=== PATIENT | male | born 1985 | race Caucasian/White ===

== ENCOUNTER 2016-08-19 13:08 | Emergency (ER) | payer SELFPAY ==
[~2016-08-19] VITALS: Ht 177.8 cm; Wt 65.0 kg
[~2016-08-19 13:08] MED LIST: VISTARIL 50MG C50 MG PO
[2016-08-19] MEDS ORDERED: ANUCORT-HC25 MG RE (14:22)
[2016-08-19 14:37] VITALS: BP 110/69
== END 2016-08-19 14:37 | disposition home or self-care (01) | DRG 395 ==
LOC: ED 13:08
DX: K60.2 Anal fissure, unspecified (principal); L29.0 Pruritus ani

== ENCOUNTER 2016-10-27 14:34 | Emergency (ER) | payer SELFPAY ==
[~2016-10-27] VITALS: Ht 177.8 cm; Wt 65.0 kg
[~2016-10-27 14:34] MED LIST changes: +ANUCORT-HC25 MG RE
[2016-10-27 16:12] VITALS: BP 131/74
== END 2016-10-27 16:12 | disposition home or self-care (01) | DRG 605 ==
LOC: ED 14:34
DX: S61.031A Puncture wound without foreign body of right thumb without damage to nail, initial encounter (principal); W45.8XXA Other foreign body or object entering through skin, initial encounter; W22.8XXA Striking against or struck by other objects, initial encounter; Y93.89 Activity, other specified; Y92.007 Garden or yard of unspecified non-institutional (private) residence as the place of occurrence of the external cause

== ENCOUNTER 2019-02-07 16:37 | Emergency (ER) | payer OTHER ==
[~2019-02-07] VITALS: Ht 177.8 cm; Wt 61.4 kg
[2019-02-07 19:10] VITALS: BP 112/79
== END 2019-02-07 19:10 | disposition home or self-care (01) | DRG 552 ==
LOC: ED 16:37
DX: S16.1XXA Strain of muscle, fascia and tendon at neck level, initial encounter (principal); M54.2 Cervicalgia; V43.52XA Car driver injured in collision with other type car in traffic accident, initial encounter; Y92.414 Local residential or business street as the place of occurrence of the external cause

== ENCOUNTER 2020-08-09 23:35 | Emergency (ER) | payer BC ==
[~2020-08-09] VITALS: Ht 180.3 cm; Wt 70.5 kg
[2020-08-10 00:21] LABS: ALBUMIN 4.6 g/dL (3.2-5.0); ALKALINE PHOSPHATASE 56 u/l (38-126); AMYLASE 56 u/l (30-110); ANION GAP 11 (6-22 (CALC)); BILIRUBIN, TOTAL 0.8 mg/dL (0.0-1.4); BUN 11 mg/dL (9-20); BUN/CREATININE RATIO 10 (12-20 (CALC)); CARBON DIOXIDE 31 mmol/l (22-30); CHLORIDE 98 mmol/l (95-108); CREATININE 1.1 mg/dL (0.7-1.3); GFR > 60 ML/MIN (>=60 (CALC)); GFR FOR AFR.AMER. > 60 ML/MIN (>=60 (CALC)); LIPASE 105 u/l (23-300); POTASSIUM 3.7 mmol/l (3.5-5.1); SGOT/AST 29 u/l (17-59); SODIUM 136 mmol/l (137-146); TOTAL PROTEIN 7.4 g/dL (6.3-8.2)
[2020-08-10 00:29] LABS: HEMATOCRIT 44.8 % (39.0-50.0); HEMOGLOBIN 15.2 g/dl (14.0-18.0); IMMATURE GRANULOCYTES 0.1 % (0.0-5.0); MEAN CELL VOLUME 89.6 fL CALC (80.0-100.0); MEAN CORPUSCULAR HGB 30.4 pG CALC (26.0-32.0); MEAN CORPUSCULAR HGB CONC 33.9 g/dL CAL (32.0-36.0); NEUT# 5.45 thou/uL (1.82-7.42); RED CELL DISTRI WIDTH 11.8 % (11.5-15.5)
[2020-08-10 00:33] LABS: MYOGLOBIN 80 ng/mL (0 - 121)
[2020-08-10 00:36] LABS: ACT PARTIAL THROMBO TIME 24.7 SECONDS (20.0-32.5); INTERNATIONAL NORMALIZED RATIO 1.1 RATIO (0.7-1.3); PROTHROMBIN TIME 10.9 SECONDS (9.0-12.5)
[2020-08-10 00:51] LABS: D-DIMER 0.17 mg/L (0.19-0.60)
[2020-08-10 01:54] VITALS: BP 117/78
== END 2020-08-10 01:54 | disposition home or self-care (01) | DRG 313 ==
LOC: ED 23:35
PROVIDERS: Family Medicine
DX: R07.89 Other chest pain (principal); F17.200 Nicotine dependence, unspecified, uncomplicated

== ENCOUNTER 2022-01-22 15:09 | Emergency (ER) | payer SELFPAY ==
[~2022-01-22] VITALS: Ht 180.3 cm; Wt 63.5 kg
[2022-01-22 15:16] VITALS: BP 102/59
[2022-01-22 15:30] VITALS: BP 107/72
== END 2022-01-22 15:38 | disposition home or self-care (01) | DRG 918 ==
LOC: ED 15:09
DX: T63.461A Toxic effect of venom of wasps, accidental (unintentional), initial encounter (principal); F17.290 Nicotine dependence, other tobacco product, uncomplicated

== ENCOUNTER 2022-10-20 00:20 | Emergency (ER) | payer SELFPAY ==
[~2022-10-20] VITALS: Ht 180.3 cm; Wt 65.8 kg
[2022-10-20 00:26] VITALS: BP 125/82
[2022-10-20 00:30] VITALS: BP 127/83
[2022-10-20 00:45] VITALS: BP 130/86
[2022-10-20 00:49] LABS: BASO% 0.2 % (0-3); EOS% 0.5 % (0-8); IMMATURE GRANULOCYTES 0.1 % (0.0-5.0); MEAN CELL VOLUME 90.7 fL CALC (80.0-100.0); MEAN CORPUSCULAR HGB 29.8 pG CALC (26.0-32.0); MEAN CORPUSCULAR HGB CONC 32.8 g/dL CAL (32.0-36.0); MONO% 10.6 % (2-13); NEUT# 7.41 thou/uL (1.82-7.42); NEUT% 69.6 % (42-76); RED BLOOD COUNT 4.1 mill/uL (4.70-6.10); RED CELL DISTRI WIDTH 11.8 % (11.5-15.5)
[2022-10-20 00:56] LABS: HEMATOCRIT 37.2 % (39.0-50.0); HEMOGLOBIN 12.2 g/dl (14.0-18.0)
[2022-10-20 01:15] VITALS: BP 117/74
[2022-10-20 01:30] VITALS: BP 110/66
[2022-10-20 01:49] VITALS: BP 110/66
== END 2022-10-20 01:49 | disposition home or self-care (01) | DRG 153 ==
LOC: ED 00:20
PROVIDERS: Family Medicine
DX: J06.9 Acute upper respiratory infection, unspecified (principal); Z20.822 Contact with and (suspected) exposure to COVID-19